=== PATIENT | female | born 1990 | race Caucasian/White ===

== ENCOUNTER 2018-12-25 00:56 | Emergency (ER) | payer OTHER ==
--- NOTE | 2018-12-25 02:56 | ED ---
Abdominal Pain/Female - HPI Summary HPI Summary: This patient is a 28 year old female presenting to [facility] with a chief complaint of epigastric pain. She states the pain woke her up two hours ago. She describes the pain as a burning pain. She states she last ate tofu before going to sleep. She denies any ETOH or drug use tonight. She denies n/v/d. She states the pain sometimes radiates to her back. - History of Current Complaint Chief Complaint: EDAbdPain Stated Complaint: ABDOMINAL PAIN PER PT Time Seen by Provider: 12/25/18 02:28 Hx Obtained From: Patient Pain Intensity: 10 Pain Scale Used: 0-10 Numeric Location: Epigastric Allergies/Adverse Reactions: Allergies Allergy/AdvReac Type Severity Reaction Status Date / Time No Known Allergies Allergy Verified 12/25/18 01:01 PMH/Surg Hx/FS Hx/Imm Hx Endocrine/Hematology History: Denies: Hx Diabetes Cardiovascular History: Denies: Hx Coronary Artery Disease Infectious Disease History: No Infectious Disease History: Reports: Traveled Outside the [place] in Last 30 Days - [place] - Family History Known Family History: Negative: Diabetes - Social History Alcohol Use: None Substance Use Type: Reports: None Smoking Status (MU): Never Smoked Tobacco Review of Systems Negative: Fever Positive: Abdominal Pain. Negative: Vomiting, Diarrhea, Nausea All Other Systems Reviewed And Are Negative: Yes Physical Exam - Summary Physical Exam Summary: General: Well-developed, Thin female tearful in moderate discomfort. HEENT: Normocephalic, Atraumatic. Eyes: Conjuctiva normal, PERRL. Ears: TMs within normal limits. Nares: (-) discharge, (-) erythema. Oropharynx: Clear, mucous membranes moist, (-) exudates. Neck: Soft, FROM, (-) lymphadenopathy, (-) thyromegaly, (-) JVD. Cardiovascular: Normal sinus rhythm, (-) murmur. Lungs: Clear to auscultation bilaterally (-) wheezes, (-) rales, (-) rhonchi. Abdomen: Soft, mild diffuse tenderness worse in the epigastric area, non- distended, (-) organomegaly, normal bowel sounds. Back: (-) CVA tenderness Extremities: No edema. Skin: Warm, dry, (-) rash. Neuro: Alert and oriented x3, no focal deficits. Psychiatric: Mood normal, affect normal. Triage Information Reviewed: Yes Vital Signs On Initial Exam: Initial Vitals Temp Pulse Resp BP Pulse Ox 96.6 F 76 20 88/65 98 12/25/18 01:01 12/25/18 01:01 12/25/18 01:01 12/25/18 01:01 12/25/18 01:01 Vital Signs Reviewed: Yes Procedures - Sedation Patient Received Moderate/Deep Sedation with Procedure: No Diagnostics - Vital Signs Vital Signs Temp Pulse Resp BP Pulse Ox 12/25/18 01:01 96.6 F 76 20 88/65 98 - Laboratory Result Diagrams: 12/25/18 03:52 12/25/18 03:52 Lab Statement: Any lab studies that have been ordered have been reviewed, and results considered in the medical decision making process. Re-Evaluation - Re-Evaluation First Eval Re-Evaluation Time: 04:51 Change: Improved Comment: Patient will be started on Prilosec and will be instructed to follow up with her PCP. Abdominal Pain Fem Course/Dx - Course Course Of Treatment: 28-year-old female with epigastric pain described as burning. Patient improved significantly after Zofran and Protonix. Discharged to home on omeprazole. Follow up with PCP. Follow-up sooner for any worsening symptoms. - Diagnoses Provider Diagnoses: Epigastric pain Discharge ED - Sign-Out/Discharge Documenting (check all that apply): Patient Departure - Discharge - Discharge Plan Condition: Stable Disposition: HOME Prescriptions: Omeprazole 20 mg PO DAILY #30 capsule. Patient Education Materials: Epigastric Pain (ED) Referrals: [facility] [Outside] Additional Instructions: Return to ED with new or worsening symptoms. Follow up with [facility]. Take Prilosec as prescribed for 6 weeks. - Billing Disposition and Condition Condition: STABLE Disposition: Home - Attestation Statements Document Initiated by Scribe: Yes Documenting Scribe: Gualberto Courtney Provider For Whom Pina is Documenting (Include Credential): Anjali Enciso MD Scribe Attestation: Gualberto Melvin, scribed for Anjali Enciso MD on 12/25/18 at 0620. Scribe Documentation Reviewed: Yes Provider Attestation: The documentation as recorded by the Gualberto miller accurately reflects the service I personally performed and the decisions made by me, Anjali Enciso MD Status of Scribe Document: Viewed
[2018-12-25] MEDS ORDERED: Pantoprazole IV* 40 MG IV ONE (03:02)
[2018-12-25] MEDS ORDERED: NS 0.9% 1000 ML** 1,000 ML IV ONE (03:02)
[2018-12-25] MEDS ORDERED: Ondansetron INJ* 2 MG/ML VIAL IV ONE (03:02)
[2018-12-25 04:00] LABS: ABS Monocytes 0.7 10^3/ul (0-0.8); ABS Neutrophils 11.5 10^3/ul (1.5-7.7); Eosinophil % 0.1 %; Hematocrit 37 % (35-47); Hemoglobin 12.2 g/dL (12.0-16.0); Lymphocyte % 7.3 %; Mean Corpuscular HGB Conc 33 g/dL (31-36); Mean Corpuscular Hemoglobin 31 pg (27-31); Mean Corpuscular Volume 94 fL (80-97); Mean Platelet Volume 7.5 fL (7.4-10.4); Platelet Count 254 10^3/uL (150-450); Red Blood Count 3.91 10^6 /uL (3.70-4.87); Red Cell Distribution Width 13 % (10-15); White Blood Count 13.2 10^3/uL (3.5-10.8)
[2018-12-25 04:04] LABS: INR 1.15 (0.82-1.09)
[2018-12-25 04:17] LABS: ALT 17 U/L (7-52); AST 15 U/L (13-39); Albumin 3.7 g/dL (3.2-5.2); Albumin/Globulin Ratio 1.3 (1-3); Alkaline Phosphatase 49 U/L (34-104); Amylase 26 U/L (29-103); Anion Gap 5 mmol/L (2-11); BUN/Creatinine Ratio 16.9 (8-20); Blood Urea Nitrogen 11 mg/dL (6-24); C Reactive Protein 1.41 mg/L (<8.01); CO2 Carbon Dioxide 23 mmol/L (22-32); Calcium 8.3 mg/dL (8.6-10.3); Chloride 109 mmol/L (101-111); EGFR African American 132.3 (>60); EGFR Non-African American 109.3 (>60); Globulin 2.8 g/dL (2-4); Glucose 96 mg/dL (70-100); Potassium 4.4 mmol/L (3.5-5.0); Sodium 137 mmol/L (135-145); Total Protein 6.5 g/dL (6.4-8.9)
[2018-12-25 04:23] LABS: HCG Pregnancy < 0.60 mIU/mL
== END 2018-12-25 05:00 | disposition home or self-care (01) ==
LOC: ED 00:56
DX: R10.13 Epigastric pain (principal)
CPT/HCPCS: 36415; 80053; 82150; 83605; 83690; 84702; 85025; 85610; 86140; 96361; 96374; 96375; 99282; J2405

== ENCOUNTER 2019-05-08 07:46 | Emergency (ER) | payer OTHER ==
[2019-05-08 08:49] VITALS: BP 118/72
--- NOTE | 2019-05-08 09:05 | ED ---
Laceration/Wound HPI - History of Current Complaint Stated Complaint: LT HAND FINGER LAC PER PT Time Seen by Provider: 05/08/19 07:55 Hx Obtained From: Patient Mechanism of Injury: Sharp/Blunt Trauma Onset/Duration: Sudden Onset Aggravating: Movement Alleviating: Compression Timing: Constant Onset Severity: Mild Current Severity: Mild Pain Intensity: 0 Pain Scale Used: 0-10 Numeric Associated Signs & Symptoms: Negative - Allergy/Home Medications Allergies/Adverse Reactions: Allergies Allergy/AdvReac Type Severity Reaction Status Date / Time No Known Allergies Allergy Verified 05/08/19 07:50 Home Medications: Home Medications NK [No Home Medications Reported] 05/08/19 [History Confirmed 05/08/19] PMH/Surg Hx/FS Hx/Imm Hx Previously Healthy: Yes Endocrine/Hematology History: Denies: Hx Diabetes Cardiovascular History: Denies: Hx Coronary Artery Disease - Immunization History Hx Pertussis Vaccination: No Immunizations Up to Date: Yes Infectious Disease History: No Infectious Disease History: Denies: Traveled Outside the [place] in Last 30 Days - Family History Known Family History: Negative: Diabetes - Social History Occupation: Employed Full-time, Student Lives: Alone Alcohol Use: Occasionally Hx Substance Use: No Substance Use Type: Reports: None Hx Tobacco Use: No Smoking Status (MU): Never Smoked Tobacco Review of Systems Negative: Fever, Chills, Fatigue, Skin Diaphoresis Negative: Palpitations, Chest Pain Negative: Shortness Of Breath, Cough Genitourinary: Negative Positive: no symptoms reported, see HPI Negative: Arthralgia, Myalgia Positive: Other - 1.5cm in length, superficial Neurological/Mental Status: Negative All Other Systems Reviewed And Are Negative: Yes Physical Exam Triage Information Reviewed: Yes Vital Signs On Initial Exam: Initial Vitals Temp Pulse Resp BP Pulse Ox 98.5 F 54 16 115/73 99 05/08/19 07:47 05/08/19 07:47 05/08/19 07:47 05/08/19 07:47 05/08/19 07:47 Vital Signs Reviewed: Yes Appearance: Positive: Well-Appearing, Well-Nourished Skin: Positive: Skin Color Reflects Adequate Perfusion, Other - 1.5cm in length , superficial Head/Face: Positive: Normal Head/Face Inspection Eyes: Positive: EOMI, PATRICE, Conjunctiva Clear Neck: Positive: Supple, No Lymphadenopathy Respiratory/Lung Sounds: Positive: Clear to Auscultation, Breath Sounds Present Cardiovascular: Positive: RRR, Pulses are Symmetrical in both Upper and Lower Extremities Musculoskeletal: Positive: Normal, Strength/ROM Intact Neurological: Positive: Speech Normal Psychiatric: Positive: Affect/Mood Appropriate AVPU Assessment: Alert Procedures - Sedation Patient Received Moderate/Deep Sedation with Procedure: No - Laceration/Wound Repair left hand Location: upper extremity Description: Irregular Anesthesia: Local Length, Depth and Shape: 1.5cm in length, superficial Diagnostics - Vital Signs Vital Signs Temp Pulse Resp BP Pulse Ox 05/08/19 08:48 98.5 F 56 16 118/72 98 05/08/19 07:47 98.5 F 54 16 115/73 99 - Laboratory Lab Statement: Any lab studies that have been ordered have been reviewed, and results considered in the medical decision making process. Laceration Repair Course/Dx - Course Course Of Treatment: The patient's evaluated for laceration to the left palmar hand measuring a 1.5 cm just proximal to the MCP of the index. Able to move extremity well. No numbness, tingling. Good pulses. Good cap refill. Minimal blood loss. Denies any pain currently. Cleanse wound thoroughly. Tetanus is up-to-date. Lidocaine without epi used as local anesthetic. 3 sutures placed using 4-0 Prolene. Occlusive gauze and bandage applied. Patient will follow- up in 7 days for suture removal. - Differential Dx Differental Diagnoses: Laceration - Clinical Impression Provider Diagnoses: Laceration Discharge ED - Sign-Out/Discharge Documenting (check all that apply): Patient Departure - Discharge Plan Condition: Stable Disposition: HOME Patient Education Materials: Care For Your Stitches (ED), Laceration (ED) Referrals: No Primary Care Phys,NOPCP [Primary Care Provider] - Additional Instructions: Follow up with [facility] in 7 days for suture removal Keep bandage applied today, may use bandaid tomorrow, then leave open to air the rest of the week unless you are working in a dirty environment - then use a bandaid or glove to cover the area - Billing Disposition and Condition Condition: STABLE Disposition: Home
== END 2019-05-08 08:48 | disposition home or self-care (01) ==
LOC: ED 07:46
DX: S61.412A Laceration without foreign body of left hand, initial encounter (principal); W26.0XXA Contact with knife, initial encounter; Y93.G3 Activity, cooking and baking; Y92.9 Unspecified place or not applicable
CPT/HCPCS: 12001; 99282